=== PATIENT | male | born 1975 | race Caucasian/White ===

== ENCOUNTER 2018-09-22 08:57 | Emergency (ER) | payer OTHER ==
[~2018-09-22] VITALS: Ht 175.3 cm; Wt 102.5 kg
[2018-09-22 09:00] VITALS: BP 138/66
[2018-09-22] MEDS ORDERED: ALBUTEROL/IPRATROPIUM 2.5MG/0.5MG, 3 ML NPPB ONE (09:30)
[2018-09-22] MEDS ORDERED: ALBUTEROL/IPRATROPIUM 2.5MG/0.5MG, 3 ML ONE (10:07)
== END 2018-09-22 10:26 | disposition home or self-care (01) ==
LOC: ED 10:00
DX: J18.0 Bronchopneumonia, unspecified organism (principal); M79.10 Myalgia, unspecified site; E78.00 Pure hypercholesterolemia, unspecified
CPT/HCPCS: 71046; 94640; 99283; J7620

== ENCOUNTER 2019-11-10 14:41 | Emergency (ER) | payer OTHER ==
[~2019-11-10] VITALS: Ht 177.8 cm; Wt 95.0 kg
[2019-11-10] MEDS ORDERED: MULT-658 PO (14:51)
--- NOTE | 2019-11-10 14:51 | NUR ---
PT ARRIVED TO ED VIA GURNEY, CODE 250 CALLED IN MRI AFTER PT BEGAN TO HAVE FLUSHING, GENERALIZED ITCHING AND SWELLING SENSATION TO THROAT SHORTLY AFTER RECEIVING GADOLINUM CONTRAST FOR OUTPATIENT MRI SCAN. PT GIVEN 50 MG BENADRYL IV PUSH BY IR RN PRIOR TO ARRIVAL IN ED, UNDER DIRECTION OF RADIOLOGIST. REPORT RECEIVED FROM CRYSTAL WEINER. ON ARRIVAL, PT HAS GENERALIZED REDNESS, PT REPORTS SWELLING SENSATION TO THROAT HAS RESOLVED. PT A&O, RESPS EVEN AND UNLABORED. PT ABLE TO SPEAK IN FULL SENTENCES AND CONTROL SECRETIONS. ALL MONITORS IN PLACE. CALL LIGHT IN REACH. EDMD LAW AT BEDSIDE FOR INITIAL ASSESSMENT.
[2019-11-10] MEDS ORDERED: methylPREDNISolone SOD SUCC 125 MG/2 ML IVPush ONE (15:00)
[2019-11-10] MEDS ORDERED: EPINEPHRINE 1 MG/ML, 1ML SQ ONE (15:00)
[2019-11-10] MEDS ORDERED: SODIUM CHLORIDE 0.9% 1,000ML IVBOLUS ONE (15:00)
[2019-11-10] MEDS ORDERED: SODIUM CHLORIDE FLUSH 10ML SYR IVF ONE (15:00)
[2019-11-10] MEDS ORDERED: EPINEPHRINE 1 MG/ML, 1ML ONE (15:01)
[2019-11-10] MEDS ORDERED: methylPREDNISolone SOD SUCC 125 MG/2 ML ONE (15:02)
--- NOTE | 2019-11-10 15:15 | NUR ---
[facility] RPT REC'D FROM CRYSTAL SILVEIRA. PT MED NOTED BY RAOUL, CALL LIGHT W/I REACH, PT VSS, LUNG SOUNDS CLR T/O.
--- NOTE | 2019-11-10 15:16 | NUR ---
pt medicated per emar, tolerating well. all monitors remain in place, pt is nsr on cardiac montior with no ectopy noted. pt a&o, resps even and unlabored, speaking in full sentences. pt denies swelling sensation to throat. redness improving. ivf infusing. report given to CRYSTAL Camargo at bedside.
[2019-11-10 15:22] LABS: BASOPHILS # (AUTO) 0.03 x10^3/uL (0-0.1); BASOPHILS % (AUTO) 0 % (0-1); EOSINOPHILS # (AUTO) 0.07 x10^3/uL (0-0.4); EOSINOPHILS % (AUTO) 1 % (1-7); LYMPHOCYTES # (AUTO) 2.35 x10^3/uL (1-3.4); LYMPHOCYTES % (AUTO) 34 % (22-44); MD NO; MEAN CORPUSCULAR HEMOGLOBIN 31.9 pg (27.5-34.5); MEAN CORPUSCULAR VOLUME 93.7 fL (81-97); MEAN PLATELET VOLUME 8.7 fL (7.4-10.4); MONOCYTES # (AUTO) 0.69 x10^3/uL (0.2-0.8); MONOCYTES % (AUTO) 10 % (2-9); NEUTROPHILS # (AUTO) 3.79 x10^3/uL (1.8-6.8); NEUTROPHILS % (AUTO) 55 % (42-75); PLATELET COUNT 221 x10^3/uL (130-400); RED BLOOD COUNT 5.16 x10^6/uL (4.38-5.82); RED CELL DISTRIBUTION WIDTH 12.8 % (9.4-14.8)
[2019-11-10 15:30] LABS: CHLORIDE 103 mmol/L (98-107)
[2019-11-10 15:35] LABS: ALANINE AMINOTRANSFERASE 43 U/L (12-78); ALBUMIN 3.9 g/dL (3.4-5.0); ANION GAP 4 mmol/L (5-15); CALCIUM 9.1 mg/dL (8.5-10.1); CREATININE 1.08 mg/dL (0.7-1.3)
[2019-11-10 15:37] LABS: ALKALINE PHOSPHATASE 65 U/L (45-117); BILIRUBIN,TOTAL 0.4 mg/dL (0.2-1.0); TOTAL PROTEIN 6.8 g/dL (6.4-8.2)
[2019-11-10 16:26] VITALS: BP 124/41
--- NOTE | 2019-11-10 17:16 | NUR ---
Patient/Caregiver given discharge instructions and they have confirmed that they understand the instructions. Patient ambulatory with steady gait.
== END 2019-11-10 17:53 | disposition home or self-care (01) ==
LOC: ED 17:15
DX: T78.2XXA Anaphylactic shock, unspecified, initial encounter (principal); E78.00 Pure hypercholesterolemia, unspecified
CPT/HCPCS: 36415; 80053; 85025; 93005; 99285; J0171; J2930; J7030

== ENCOUNTER → 2019-11-10 | Outpatient (CLI) | payer OTHER ==
[~2019-11-10] MED LIST: DIPHENHYDRAMINE 50 MG/ML, 1ML ONE; GADOTERATE 10 MMOL/20 ML SYR ONE; MULT-658 PO
== END | disposition home or self-care (01) ==
LOC: RAD 13:11
PROVIDERS: ATTEND Emergency Medicine Emergency Medical Services
DX: M26.69 Other specified disorders of temporomandibular joint (principal); J34.89 Other specified disorders of nose and nasal sinuses
CPT/HCPCS: 70553; A9575; J1200